=== PATIENT | male | born 1960 | race Caucasian/White ===

== ENCOUNTER 2017-11-21 03:11 | Emergency (ER) | payer OTHER ==
[~2017-11-21] VITALS: Ht 195.6 cm; Wt 117.9 kg
[~2017-11-21 03:11] MED LIST: HYDACE5 PO; MULVITA
[2017-11-21] MEDS ORDERED: ASPI81CH PO (04:00)
[2017-11-21] MEDS ORDERED: [UNRECOGNIZED DRUG - OTHER] (04:01)
[2017-11-21] MEDS ORDERED: Percocet 5-3251 EACH PO (04:28)
[2017-11-21] MEDS ORDERED: Zovirax800 MG PO (04:28)
== END 2017-11-21 04:55 | disposition home or self-care (01) ==
LOC: ER 03:11
DX: B02.9 Zoster without complications (principal); Z88.0 Allergy status to penicillin; Z79.82 Long term (current) use of aspirin; Z79.899 Other long term (current) drug therapy; Z87.891 Personal history of nicotine dependence
CPT/HCPCS: 99283

== ENCOUNTER 2021-02-09 16:47 | Emergency (ER) | payer OTHER ==
[~2021-02-09] VITALS: Ht 188 cm; Wt 122.5 kg
[~2021-02-09 16:47] MED LIST changes: +ASPI81CH PO; +Percocet 5-3251 EACH PO; +Zovirax800 MG PO; +[UNRECOGNIZED DRUG - OTHER]
[2021-02-09] MEDS ORDERED: Percocet 5-3251 EACH PO ×3 (18:38→18:47)
== END 2021-02-09 19:13 | disposition home or self-care (01) ==
LOC: ER 16:47
DX: S76.112A Strain of left quadriceps muscle, fascia and tendon, initial encounter (principal); Z88.0 Allergy status to penicillin; Z87.891 Personal history of nicotine dependence
CPT/HCPCS: 29505; 36415; 73562-LT; 76882; 96374; 99284-25; J3010